=== PATIENT | female | born 1950 | race Caucasian/White ===

== ENCOUNTER 2021-03-16 19:56 | Emergency (ER) | payer MEDICARE | END 2021-03-16 21:38 | disposition home or self-care (01) | LOC: CSHERS 19:56 | DX: T38.1X1A Poisoning by thyroid hormones and substitutes, accidental (unintentional), initial encounter (principal); I10 Essential (primary) hypertension; M19.90 Unspecified osteoarthritis, unspecified site | CPT/HCPCS: 99283 ==